=== PATIENT | male | born 1990 | race Two or more races ===

== ENCOUNTER 2018-07-24 19:24 | Emergency (ER) | payer OTHER ==
[~2018-07-24] VITALS: Ht 180.3 cm; Wt 62.6 kg
[2018-07-24 20:02] VITALS: BP 132/82
--- NOTE | 2018-07-24 20:18 | NUR ---
PT BIBS. C/O "HAVING GREEN STOOL AND FEELING DIZZY X30 MINS AGO. GREEN STOOL X3 DAYS" PT AOX4. AMBULATORY. VSS. -SOB -ACUTE DSITRESS.
== END 2018-07-24 21:14 | disposition home or self-care (01) ==
LOC: ER 19:31
DX: R42 Dizziness and giddiness (principal); J45.909 Unspecified asthma, uncomplicated
CPT/HCPCS: Z7502